=== PATIENT | male | born 1960 | race African-American/Black ===

== ENCOUNTER 2017-05-10 06:30 | Day surgery (SDC) | payer BC ==
[~2017-05-10] VITALS: Ht 190.5 cm; Wt 136.1 kg
[2017-05-10] VITALS (7 sets, daily range): BP systolic 117–134; BP diastolic 73–86
--- NOTE | 2017-05-10 05:51 | Anethesia Preoperative Eval ---
Anesthesia Pre-op PMH/ROS General Date of Evaluation: May 10, 2017 Time of Evaluation: 05:50 Anesthesiologist: stan ASA Score: ASA 3 Mallampati Score Class I : Soft palate, uvula, fauces, pillars visible Class II: Soft palate, uvula, fauces visible Class III: Soft palate, base of uvula visible Class IV: Only hard plate visible Mallampati Classification: Class II Surgeon: carmen Diagnosis: colon polyps Surgical Procedure: colonoscopy Anesthesia History: none Family History: no anesthesia problems Allergies: Coded Allergies: No Known Allergies (Unverified , 05/09/17) Medications: see eMAR Past Medical History Cardiovascular: Reports: other - hypercholesterolemia Pulmonary: Reports: other - pulmonaary emboli Gastrointestinal/Genitourinary: Reports: GERD Musculoskeletal/Integumentary: Reports: OA, DJD, other - left total hip arthroplasty, left knee surgery Other: obesity Anesthesia Pre-op Phys. Exam Physician Exam Constitutional: NAD Neurologic: CN 2-12 intact Cardiovascular: RRR Respiratory: CTA Gastrointestinal: S/NT/ND Airway Exam Mallampati Score: Class II MO: full Neck: supple TMD: 2fb ROM: full Teeth: intact Anesthesia Pre-op A/P Risk Assessment & Plan Assessment: asa3 Plan: mac Status Change Before Surgery: No Pre-Antibiotics Drug: MANASA Rogers May 10, 2017 05:51
[2017-05-10] MEDS ORDERED: LIPITOR40 MG ORAL (06:59)
[2017-05-10] MEDS ORDERED: ELIQUIS2.5 MG PO (06:59)
[2017-05-10] MEDS ORDERED: LR 1000ml 1,000 ML IVLG SCH ×2 (07:00→08:01)
[2017-05-10] MEDS ORDERED: Lidocaine 1% MPF 10mg/ml 5ml ONE (07:00)
[2017-05-10] MEDS ORDERED: LR 1000ml ONE (07:00)
[2017-05-10] MEDS ORDERED: Propofol 10mg/ml 20ml IV ONE (07:00)
[2017-05-10] MEDS ORDERED: DiphenhydrAMINE 50mg/ml Inj IVP PRN (07:30)
[2017-05-10] MEDS ORDERED: Atropine Inj 1mg/10ml Syr IV PRN (07:30)
[2017-05-10] MEDS ORDERED: Hydromorphone 0.5mg/0.5ml inj IVP PRN (07:30)
[2017-05-10] MEDS ORDERED: Midazolam 2mg/2ml Inj IVP PRN (07:30)
--- NOTE | 2017-05-10 07:30 | Pre-Procedure Note/Attestation ---
Pre-Procedure Note/Attestation Complete Prior to Procedure Planned Procedure: not applicable Procedure Narrative: colon Indications for Procedure Pre-Operative Diagnosis: h/o polyps Attestation I attest that I discussed the nature of the procedure; its benefits; risks and complications; and alternatives (and the risks and benefits of such alternatives ), prior to the procedure, with the patient (or the patient's legal junior sales representative). I attest that, if there was a reasonable possibility of needing a blood transfusion, the patient (or the patient's legal junior sales representative) was given the [facility] standardized written summary, pursuant to the Don [place] Blood Safety Act ([place] Health and Safety Code # 1645, as amended). I attest that I re-evaluated the patient just prior to the surgery and that there has been no change in the patient's H&P, except as documented below: CEDRIC ELLER May 10, 2017 07:30
--- NOTE | 2017-05-10 07:30 | Short Stay Surgery H&P ---
History of Present Illness History of Present Illness Chief Complaint see H&P attached HPI Octavio Gan is a 57 year old male who was admitted on for Colon Polyps Patient History Allergies: Coded Allergies: No Known Allergies (Unverified , 05/09/17) PAST MEDICAL HISTORY: Past Surgeries: Social History: Medication History Scheduled Apixaban (Eliquis), 2.5 MG PO BID, (Reported) Atorvastatin Calcium* (Lipitor*), 40 MG ORAL DAILY, (Reported) Physical Exam Vital Signs Last Vital Signs Date Time Temp Pulse Resp B/P (MAP) Pulse Ox O2 Delivery O2 Flow Rate FiO2 05/10/17 07:01 97.2 74 20 134/83 97 Room Air Plan Attestation Are the patient's medical conditions optimized for surgery? CEDRIC ELLER May 10, 2017 07:30
--- NOTE | 2017-05-10 07:51 | Immediate Post-Op Evaluation ---
Immediate Post-Op Evalulation Immediate Post-Op Evalulation Procedure: colonoscopy Date of Evaluation: May 10, 2017 Time of Evaluation: 08:22 IV Fluids: lr 400ml Blood Products: none Estimated Blood Loss: negligible Blood Pressure Systolic: 124 Blood Pressure Diastolic: 84 Pulse Rate: 70 Respiratory Rate: 18 O2 Sat by Pulse Oximetry: 99 Temperature (Fahrenheit): 97.3 Pain Score (1-10): 0 Nausea: No Vomiting: No Complications none Patient Status: awake, reacts, patent Hydration Status: adequate Drug: MANASA Rogers May 10, 2017 07:51
--- NOTE | 2017-05-10 08:55 | 48 Hour Post Anesthesia Eval ---
Post Anesthesia Evaluation Procedure: colonoscopy Date of Evaluation: May 10, 2017 Time of Evaluation: 08:53 Blood Pressure Systolic: 124 0: 84 Pulse Rate: 74 Respiratory Rate: 18 Temperature (Fahrenheit): 97.3 O2 Sat by Pulse Oximetry: 99 Airway: patent Nausea: No Vomiting: No Pain Intensity: 0 Hydration Status: adequate Cardiopulmonary Status: stable Mental Status/LOC: patient returned to baseline Post-Anesthesia Complications: none Follow-up care needed: N/A MANASA VARGAS May 10, 2017 08:55
--- NOTE | 2017-05-10 09:32 | Endoscopy Procedure Note ---
Endoscopy Procedure Note Indication for Procedure: h/o polyp Procedures Performed: colonoscopy Operative Findings/Diagnosis: polyp -SN and bx.rare tics Specimen: yes Pt Tolerated Procedure Well: Yes Estimated Blood Loss: none Anesthesiologist: see report Anesthesia: MAC Medication Given: see anesthesia record Implant(s) used?: No 50 yrs or older w/o bx or poly: No 10yrs. F/U not recommended: No If not recommended, why?: Above average risk 10 yrs. F/U needed: No 18 years or older w/prev. colo: Yes <3yrs. since last colonoscopy: No Med reason:<3 yrs.: System Reason:<3 yrs.: Last colonoscopy >= to 3yrs: Yes CEDRIC ELLER May 10, 2017 09:32
--- NOTE | 2017-05-10 09:34 | Brief Operative Note ---
Immediate Post Operative Note Operative Note Chief Complaint: iron deficiency Pre-op Diagnosis: h/o polyps Post-op Diagnosis: GERD, esoph ulcer, gastric polyp, rectal polyp Surgeon: carmen Anesthesiologist: see report Anesthesia: MAC Specimen: yes Complications: none Condition: stable Fluids: per anesthesia Estimated Blood Loss: none Drains: none Implant(s) used?: No CEDRIC ELLER May 10, 2017 09:34
--- NOTE | 2017-05-14 09:15 | Operative Note - Dictated ---
DATE OF OPERATION: 05/10/2017 PROCEDURE: Colonoscopy with biopsy and snare polypectomy. SURGEON: Leidy Hopkins M.D. ANESTHESIA: Please see the separate anesthesiologist notes for details. PRE-ENDOSCOPIC DIAGNOSIS: Screening colonoscopy. POST-ENDOSCOPIC DIAGNOSES: 1. Flat polyp seen in the proximal descending colon, status post cold snare polypectomy. 2. Diminutive polyp of 30 cm, status post biopsy and removal. 3. Diminutive rectal polyp, status post biopsy and removal. 4. Rare diverticulosis. DESCRIPTION OF PROCEDURE: The procedure, its risks, indications, alternatives, and possible complications were explained to the patient and an informed consent was obtained. The patient was then sedated in the left lateral decubitus position and a rectal exam was done. The colonoscope was advanced into the rectum and advanced to the cecum without difficulty. The cecum was identified by the appearance of the ileocecal valve. The colonoscope was then gradually withdrawn and the mucosa examined carefully. Examination of colonic mucosa is notable for above findings and procedures. The colonoscope was removed and the patient was sent to recovery in good condition. COMPLICATIONS: None. RECOMMENDATIONS: 1. Follow up biopsy results. 2. High-fiber diet. 3. Outpatient followup. Thank you for asking me to participate in the care of this patient. Leidy Hopkins M.D. DR: GUME JOB#: [id number] CC: Leidy Hopkins M.D.; Fax#: [phone] Penn M.D.
== END 2017-05-10 09:15 | disposition home or self-care (01) ==
LOC: GAS 06:30
DX: K63.5 Polyp of colon (principal); K62.1 Rectal polyp; M19.90 Unspecified osteoarthritis, unspecified site; K57.30 Diverticulosis of large intestine without perforation or abscess without bleeding; K21.9 Gastro-esophageal reflux disease without esophagitis; E66.9 Obesity, unspecified; Z68.38 Body mass index [BMI] 38.0-38.9, adult; E78.00 Pure hypercholesterolemia, unspecified; D50.9 Iron deficiency anemia, unspecified; R03.0 Elevated blood-pressure reading, without diagnosis of hypertension; Z87.19 Personal history of other diseases of the digestive system; Z86.718 Personal history of other venous thrombosis and embolism; Z96.642 Presence of left artificial hip joint
CPT/HCPCS: 45380; 45385; J2704; J7120; 94003; 94150